=== PATIENT | female | born 2005 | race Caucasian/White ===

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

== ENCOUNTER 2024-09-30 01:26 | Emergency (ER) | payer SELFPAY ==
[2024-09-30] MEDS ORDERED: TDAP (DIPHTH,PERTUSS(ACELL),TET VAC) 0.5 ML VIAL IMVAC ONE (01:34)
[2024-09-30] MEDS ORDERED: CEFAZOLIN SODIUM 1 GM/VIAL ONE (01:34)
[2024-09-30] MEDS ORDERED: NA CHLORIDE 0.9% 1,000 ML ONE (01:34)
[2024-09-30] MEDS ORDERED: ONDANSETRON 4 MG/2 ML VIAL ONE (01:34)
[2024-09-30] MEDS ORDERED: NA CHLORIDE 0.9% 50 ML ONE (01:35)
[2024-09-30 02:15] LABS: Absolute Basophils 0.1 K/uL (0-0.5); Absolute Eosinophils 0.5 K/uL (0-0.5); Absolute Lymphocytes (CBC) 2.4 K/uL (0.7-4.9); Absolute Monocytes 0.5 K/uL (0.1-1.3); Absolute Neutrophil 4.4 K/uL (1.8-8.0); Basophils % 0.8 % (0-1.3); Eosinophils % 6.8 % (0-4.4); Hemoglobin 13.2 g/dL (12.0-15.0); Lymphocytes % 30.5 % (15.3-44.8); MCH 31.2 pg (27.0-35.0); MCHC 34.8 g/dL (32.0-36.0); MCV 89.7 fL (80-100); MPV 8.3 fL (7.6-11.3); Neutrophils % 55.9 % (41.7-73.7); Nucleated Red Blood Cells % 0.1 % (0-0); Platelets 207 thou/uL (152-406); RBC Red Blood Cell Count 4.24 M/uL (3.86-4.86); Red Cell Distribution Width 14.2 % (12.1-15.2)
[2024-09-30 02:21] LABS: ALT/SGPT 18 U/L (13-56); AST/SGOT 14 U/L (15-37); Albumin 3.7 g/dL (3.4-5.0); Albumin/Globulin Ratio 1.1 (1.1-1.8); Alkaline Phosphatase 53 U/L (45-117); Anion Gap 8.4 mEq/L (5.0-15.0); BUN Blood Urea Nitrogen 12 mg/dL (7-18); Bicarbonate 26 mEq/L (21-32); Bilirubin Total 0.3 mg/dL (0.2-1.0); Globulin 3.4 g/dL (2.3-3.5); Glomerular Filtration Rate 112 ml/min (=/>90); Glucose Level 107 mg/dL (74-106); Potassium 3.4 mEq/L (3.5-5.1); Protein, Total 7.1 g/dL (6.4-8.2); Sodium Level 140 mEq/L (136-145)
[2024-09-30] MEDS ORDERED: FENTANYL CITR 100 MCG/2 ML ONE (02:55)
[2024-09-30 03:11] LABS: Bilirubin Direct < 0.2 mg/dL (0-0.2); Bilirubin Indirect, Calculated 0.1 mg/dL (0.2-0.8)
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
[2024-09-30 04:21] VITALS: TEMP 97.4; O2SAT 100
[2024-09-30 04:24] VITALS: BP 108/65
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
== END 2024-09-30 04:18 | disposition home or self-care (01) ==
LOC: ER 01:26
DX: S81.011A Laceration without foreign body, right knee, initial encounter (principal)
CPT/HCPCS: 12032; 36415; 70450; 71045; 72125; 72170; 80048; 80076; 82077; 85025; 86850; 86900; 86901; 93005; 96365; 96366; 96372; 96375; 99285; J0690; J2405; J3010; J7030

== ENCOUNTER 2024-10-08 17:39 | Emergency (ER) | payer SELFPAY ==
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
[2024-10-08 18:14] VITALS: BP 108/64; O2SAT 100
== END 2024-10-08 18:01 | disposition home or self-care (01) ==
LOC: ER 17:39
DX: Z48.02 Encounter for removal of sutures (principal)
CPT/HCPCS: 99283

== ENCOUNTER 2024-10-22 12:55 | Emergency (ER) | payer SELFPAY ==
[2024-10-22 13:53] LABS: Absolute Eosinophils 0.2 K/uL (0-0.5); Absolute Lymphocytes (CBC) 1.5 K/uL (0.7-4.9); Absolute Monocytes 0.6 K/uL (0.1-1.3); Absolute Neutrophil 5.6 K/uL (1.8-8.0); Basophils % 0.5 % (0-1.3); Eosinophils % 2.8 % (0-4.4); Hematocrit 38.5 % (36.0-45.0); Hemoglobin 13.2 g/dL (12.0-15.0); Lymphocytes % 18.8 % (15.3-44.8); MCH 30.3 pg (27.0-35.0); MCHC 34.2 g/dL (32.0-36.0); MCV 88.8 fL (80-100); MPV 7.9 fL (7.6-11.3); Monocytes % 7.8 % (3.3-12.3); Neutrophils % 70.1 % (41.7-73.7); Nucleated Red Blood Cells % 0.1 % (0-0); Platelets 263 thou/uL (152-406); RBC Red Blood Cell Count 4.34 M/uL (3.86-4.86); Red Cell Distribution Width 14.2 % (12.1-15.2)
[2024-10-22 14:26] LABS: Bilirubin Total 0.4 mg/dL (0.2-1.0)
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
--- NOTE | 2024-10-22 15:50 | RAD REPORT ---
EXAMINATION: US RIGHT LOWER EXTREMITY VENOUS DOPPLER CLINICAL INDICATION: SWELLING TECHNIQUE: Complete bilateral duplex sonography of the RIGHT lower extremity veins was performed. The examination included compression for vein patency, color Doppler imaging and flow augmentation in response to distal compression of the distal external iliac, common femoral, femoral, popliteal, tibi al, and great and small saphenous veins. COMPARISON: No prior exam. FINDINGS: Duplex sonography testing of the veins of the RIGHT lower extremity was performed. Color flow imaging shows all veins to be compressible with [id number] color filling. Pulsatile and phasic flow is present within all lower extremity deep and superficial veins examined. IMPRESSION: No evidence of deep venous thrombosis.
[2024-10-22 15:58] VITALS: TEMP 98.1
[2024-10-22 16:08] VITALS: O2SAT 99
[2024-10-22 16:09] VITALS: BP 97/74
== END 2024-10-22 15:43 | disposition home or self-care (01) ==
LOC: ER 12:55
DX: R60.9 Edema, unspecified (principal)
CPT/HCPCS: 36415; 80053; 85025; 87040; 93971; 99284